=== PATIENT | male | born 1980 | race Caucasian/White ===

== ENCOUNTER 2023-12-26 02:06 | Emergency (ER) | payer MEDICAID, OTHER ==
[~2023-12-26] VITALS: Ht 172.7 cm; Wt 102.0 kg
[~2023-12-26 02:06] MED LIST: INSLAN SQ; METF-446 PO
[2023-12-26 02:11] VITALS: BP 148/86; PULSE 99; RESP 15; TEMP 98.3
[2023-12-26] MEDS ORDERED: LIDOCAINE 1% 10 ML VIAL SQ ONE (03:15)
[2023-12-26] MEDS ORDERED: INSULIN REGULAR, HUMAN 100 UNITS/ML IVP ONE (03:15)
[2023-12-26] MEDS ORDERED: SODIUM CHLORIDE 0.9% 1,000 ML IV ONE (03:15)
[2023-12-26] MEDS ORDERED: CEPHALEXIN MONOHYDRATE 500 MG CAPSULE PO ONE (03:15)
[2023-12-26] MEDS ORDERED: DOXYCYCLINE HYCLATE 100 MG TABLET PO ONE (03:15)
[2023-12-26 03:27] LABS: BASOPHILS % (AUTO) 0.6 % (0.0-2.0); EOSINOPHILS % (AUTO) 1.8 % (1.0-6.0); HEMOGLOBIN 14.6 g/dL (13.5-17.5); LYMPHOCYTES % (AUTO) 15.2 % (22.0-44.0); MEAN CORPUSCULAR HEMOGLOBIN 28.5 pg (26.0-34.0); MEAN CORPUSCULAR HGB CONC 33.9 G/dL (31.0-37.0); MEAN CORPUSCULAR VOLUME 84 fL (80-100); MONOCYTES # (AUTO) 0.9 K/uL (0.1-1.0); MONOCYTES % (AUTO) 6.7 % (2.0-9.0); NEUTROPHILS # (AUTO) 9.8 K/uL (1.8-7.7); NEUTROPHILS % (AUTO) 75.7 % (40.0-70.0); PLATELET COUNT (AUTO) 293 K/uL (150-450); RED BLOOD CELL COUNT(AUTO) 5.12 MIL/uL (4.50-5.90); RED CELL DISTRIBUTION WIDTH 13.4 % (11.5-14.5)
[2023-12-26 03:40] LABS: ANION GAP 8 mmol/L (8-16); CALCIUM, TOTAL 9.4 mg/dL (8.8-10.5); CARBON DIOXIDE 28 mmol/L (22-29); CHLORIDE 97 mmol/L (98-107); CREATININE 0.81 mg/dL (0.60-1.30); GLOMERULAR FILTR. RATE CALC > 60 mL/min (>60); POTASSIUM 4.1 mmol/L (3.5-5.1); SODIUM SERUM 133 mmol/L (136-145); UREA NITROGEN, BLOOD 14 mg/dL (7-18)
[2023-12-26 03:44] LABS: GLUCOSE,RANDOM 464 mg/dL (70-110)
[2023-12-26] MEDS ORDERED: IBUP-1554 PO (04:35)
[2023-12-26] MEDS ORDERED: DOXY-354 PO (04:35)
[2023-12-26] MEDS ORDERED: CEPH-558 PO (04:35)
[2023-12-26 05:51] LABS: GLUCOMETER DEV NAME(LOC) ERT.5; GLUCOSE,POINT OF CARE 219 MG/DL (70-110)
[2023-12-27] MEDS ORDERED: CEPH-558 PO (10:05)
[2023-12-27] MEDS ORDERED: DOXY-354 PO (10:05)
[2023-12-27] MEDS ORDERED: IBUP-1554 PO (10:05)
== END 2023-12-26 04:43 | disposition home or self-care (01) ==
LOC: EMS 02:07
DX: L72.3 Sebaceous cyst (principal); E11.65 Type 2 diabetes mellitus with hyperglycemia; I10 Essential (primary) hypertension
CPT/HCPCS: 99283; 96374; 10060; 96361; 80048; 82962; 85025; 36415; J3490; J7030; J1815

== ENCOUNTER 2024-04-06 08:01 | Emergency (ER) | payer OTHER ==
[~2024-04-06] VITALS: Ht 172.7 cm; Wt 80.0 kg
[~2024-04-06 08:01] MED LIST changes: +CEPH-558 PO; +DOXY-354 PO; +IBUP-1554 PO
[2024-04-06 08:08] VITALS: BP 127/74; PULSE 98; RESP 18; TEMP 98.1
[2024-04-06 08:26] LABS: GLUCOMETER DEV NAME(LOC) ERT.5; GLUCOSE,POINT OF CARE 400 MG/DL (70-110)
[2024-04-06] MEDS ORDERED: CEPH-558 PO (09:09)
[2024-04-06] MEDS ORDERED: IBUP-1492 PO (09:10)
[2024-04-06] MEDS ORDERED: SULF-261 PO (09:10)
[2024-04-06] MEDS: LIDOCAINE 1% 10 ML VIAL SQ ONE (09:37)
== END 2024-04-06 09:42 | disposition home or self-care (01) ==
LOC: EMS 08:10
DX: L02.811 Cutaneous abscess of head [any part, except face] (principal); E11.9 Type 2 diabetes mellitus without complications; I10 Essential (primary) hypertension
CPT/HCPCS: 99283; 10060; 82962; J3490

== ENCOUNTER 2024-04-08 06:21 | Emergency (ER) | payer OTHER ==
[~2024-04-08] VITALS: Ht 167.6 cm; Wt 85.0 kg
[~2024-04-08 06:21] MED LIST changes: +IBUP-1492 PO; +SULF-261 PO
[2024-04-08 06:30] VITALS: TEMP 97.8
[2024-04-08] MEDS: LIDOCAINE 1% 10 ML VIAL SQ ONE (07:23)
[2024-04-08] MEDS ORDERED: SODIUM CHLORIDE 0.9% 100 ML ONE (08:13)
[2024-04-08] MEDS ORDERED: IOHEXOL 350 MG/ML 100 ML VIAL ONE (08:13)
[2024-04-08 08:40] LABS: EOSINOPHILS % (AUTO) 3.9 % (1.0-6.0); HEMATOCRIT 40.7 % (41-53); LYMPHOCYTES # (AUTO) 1.5 K/uL (1.0-4.8); LYMPHOCYTES % (AUTO) 29.3 % (22.0-44.0); MEAN CORPUSCULAR HEMOGLOBIN 28.4 pg (26.0-34.0); MEAN CORPUSCULAR HGB CONC 34.5 G/dL (31.0-37.0); MEAN CORPUSCULAR VOLUME 82 fL (80-100); MONOCYTES # (AUTO) 0.5 K/uL (0.1-1.0); MONOCYTES % (AUTO) 10.3 % (2.0-9.0); NEUTROPHILS # (AUTO) 2.9 K/uL (1.8-7.7); NEUTROPHILS % (AUTO) 55.5 % (40.0-70.0); PLATELET COUNT (AUTO) 274 K/uL (150-450); RED BLOOD CELL COUNT(AUTO) 4.95 MIL/uL (4.50-5.90); WHITE BLOOD COUNT (AUTO) 5.2 K/uL (4.5-11.0)
[2024-04-08] MEDS: CefTRIAXone SODIUM 1 GM/VIAL IM ONE (08:57)
[2024-04-08] MEDS: LIDOCAINE/PF 1% 2 ML VIAL IM ONE (08:57)
[2024-04-08] MEDS ORDERED: PERCT PO (10:37)
[2024-04-08 11:10] VITALS: BP 112/62; PULSE 76; RESP 18
== END 2024-04-08 11:35 | disposition home or self-care (01) ==
LOC: EMS 06:23
DX: L02.811 Cutaneous abscess of head [any part, except face] (principal); E11.9 Type 2 diabetes mellitus without complications; I10 Essential (primary) hypertension
CPT/HCPCS: 99285; 10060; 70450; 85025; 36415; 96372; J0696; J3490 ×2; Q9967; J7050